=== PATIENT | female | born 1960 | race American Indian/Alaskan Native ===

== ENCOUNTER 2018-06-01 11:16 | Outpatient (CLI) | payer OTHER ==
--- NOTE | 2018-06-01 12:37 | XRay Report ---
Chest 2 views: History: Asthma, high blood pressure. Findings: Normal cardiomediastinal silhouette. Trachea is midline. No definite consolidation, pneumothorax or pleural effusion. Impression: No acute cardiopulmonary findings.
== END 2018-06-01 11:17 | disposition home or self-care (01) ==
LOC: PF 11:16
PROVIDERS: ATTEND Internal Medicine
DX: J45.909 Unspecified asthma, uncomplicated (principal); E11.9 Type 2 diabetes mellitus without complications; I10 Essential (primary) hypertension
CPT/HCPCS: 71046; 94010